=== PATIENT | female | born 1985 | race Caucasian/White ===

== ENCOUNTER 2018-01-25 18:29 | Emergency (ER) | payer OTHER ==
--- NOTE | 2018-01-25 18:50 | EDPHY ---
HPI/HX/ROS/PE/MDM Narrative: CHIEF COMPLAINT: "I'm 6.5 weeks and I started bleeding today" HISTORY OF PRESENT ILLNESS: The patient is a 6.8-[id number] y/o female arriving with her complaining of progressively worsening vaginal bleeding and abdominal cramping onset today upon waking. Her last period was December 10. She had a positive home test and subsequent positive test through her PCP's office on Thursday 6 days ago. The bleeding has progressively increased in quantity throughout the day. She has passed blood clots and is continuing to bleed. She is unsure if she has passed any tissue. She has associated lower abdominal cramping and feels mildly lightheaded currently. She took Tylenol for pain earlier today. She called her OBGYN's office to discuss her symptoms and they ordered HCG and progesterone labs ahead of her first OBGYN visit tomorrow. No sex in the last 24 hours or any report of abdominal trauma. She has been off control for 3 months while trying for and has not had an IUD. She is normally healthy with no history of STDs. No rash, fever, chills, cough, rhinorrhea, chest pain, shortness of breath, palpitations, vomiting, diarrhea, urinary complaints, headache, syncope. REVIEW OF SYSTEMS: Aside from elements discussed in the HPI, a comprehensive 10-point review of systems was reviewed and is negative. PAST MEDICAL HISTORY: Denies. SOCIAL HISTORY: at bedside. Lives in [place]. Employed. VITAL SIGNS: Reviewed by me GENERAL: Well-developed, well-nourished, resting comfortably in no respiratory distress. Somewhat quiet. Seems anxious. HEENT: Atraumatic. Eyes: No icterus, no injection. Mouth: moist mucous membranes. No erythema or lesions. Neck: supple with no adenopathy. LUNGS: Clear to auscultation bilaterally, no wheezes, rhonchi or rales. CARDIAC: Regular rate and rhythm, no rubs, murmurs or gallops. ABDOMEN: Firm, questionable voluntary guarding (pt states: unable to relax her abdominal muscles), mild RLQ tenderness, nondistended. BACK: No CVA tenderness. EXTREMITIES: No trauma. No edema. Range of motion is normal throughout. NEURO: Alert and oriented, grossly nonfocal. SKIN: Warm and dry, no rash. PSYCHIATRIC: Normal mentation, no agitation. Portions of this note were transcribed by a medical insurance clerk. I personally performed a history, physical exam, medical decision making, and confirmed accuracy of information the transcribed note. ED Course: This is a normally healthy 32 y/o female who reports she is 6.5 weeks and presents with a 1-day history of progressively worsening vaginal bleeding and abdominal cramping. She appears anxious and has RLQ tenderness and a firm abdomen on exam, though this seems to be voluntary guarding. My limited bedside abdominal US to rule out intraabdominal bleeding was negative for intraperitoneal fluid. Her bladder was not visualized. Plan for IV, labs, and obstetrics US. 1L IV NS ordered. Laboratory data demonstrates a quantitative HCG of 1720 earlier today and 1480 the here in the emergency department. Patient had type and Rh performed earlier today which is a positive. Patient received a L of normal saline. She was offered pain medications which she declined. Pelvic ultrasound was ordered. Care was assumed by Dr. Hernandez at this time pending the results of the ultrasound. Please see his documentation for further information. US: No IUP or ectopic visualized. Dr. Hernandez discussed findings with the patient. She understands she needs to follow up with her OBGYN without fail tomorrow. Strict return precautions discussed. She is comfortable with this plan. MDM: Differential diagnosis of the patient's vaginal bleeding includes threatened miscarriage, spontaneous miscarriage, incomplete miscarriage, ectopic , trauma, cervicitis, ovarian cysts, cervical cancer, and infection. - Data Points Imaging Results: Impression: of unknown location with no definite evidence of ectopic . Findings discussed with Licha Hyatt MD 01/25/2018 at 20:45. Dictated By: Mekhi Caceres MD Note please: Dr. Caceres discussed this ultrasound report with Dr. Hernandez. Not with myself. Dr. Hernandez discharged the patient. Imaging: Discussed imaging studies w/ call out operator Radiologist Laboratory Results: Laboratory Results 01/25/18 19:06 01/25/18 19:06 Medications Given: Discontinued Medications Sodium Chloride (Ns) 1,000 mls @ 0 mls/hr IV EDNOW ONE; Wide Open PRN Reason: Protocol Stop: 01/25/18 19:08 Last Admin: 01/25/18 19:07 Dose: 1,000 mls General Time Seen by Provider: 01/25/18 18:40 Initial Vital Signs: Initial Vital Signs Heart Rate 61 01/25/18 18:31 Respiratory Rate 16 01/25/18 18:31 Blood Pressure 125/66 H 01/25/18 18:31 O2 Sat (%) 99 01/25/18 18:31 O2 Delivery Mode Room Air Allergies/Adverse Reactions: Sulfa (Sulfonamide Antibiotics) Allergy (Verified 01/25/18 18:35) Departure - Departure Disposition: Home, Routine, Self-Care Clinical Impression: Threatened miscarriage in early Condition: Good Instructions: Threatened Miscarriage (ED) Additional Instructions: Follow up with your OBGYN tomorrow without fail. Return to the ED for severe pain, uncontrollable bleeding, fainting, or other worsening of condition. Referrals: Ysabel Donis MD [Medical Doctor] - As per Instructions Report Scribed for: Licha Hyatt Report Scribed by: Izabella Quick Date of Report: 01/25/18 Time of Report: 18:50
[2018-01-25] MEDS ORDERED: NS 1,000 ML IV ONE (19:07)
[2018-01-25 19:18] LABS: PLATELET COUNT 195 10^3/uL (150-400)
[2018-01-25 21:07] VITALS: BP 106/65
== END 2018-01-25 21:07 | disposition home or self-care (01) ==
DX: O20.0 Threatened abortion (principal); E86.9 Volume depletion, unspecified; Z3A.01 Less than 8 weeks gestation of pregnancy